=== PATIENT | male | born 1995 | race Caucasian/White ===

== ENCOUNTER 2017-02-19 11:47 | Emergency (ER) | payer BC ==
--- NOTE | 2017-02-19 12:21 | EDM.PDOC ---
ED HPI GENERAL MEDICAL PROBLEM - General Chief Complaint: General Stated Complaint: PAIN IN LOWER BACK Time Seen by Provider: 02/19/17 12:21 Source of Information: Reports: Patient History Limitations: Reports: No Limitations - History of Present Illness INITIAL COMMENTS - FREE TEXT/NARRATIVE: 21-year-old male presents for evaluation and treatment of low back pain. Patient reports he has been experiencing back pain for the last month. States that it did go away for about one week but returned. He is reporting pain to the bilateral lower back. He denies any trauma to the back or injury. No radiation into his legs, weakness, difficulty with ambulation or numbness or tingling into the legs. Patient reports that he has had brown, bonnie urine the last few days. He denies any fevers, chills, dysuria, hematuria, nausea, vomiting, abdominal pain or any weight changes. He states that he has been drinking plenty of water. Patient reports faxed by 3 months ago he was hospitalized for acute kidney failure. He states that he was on a bicycle for about 10 hours he then played basketball for about 5 hours. He was hospitalized in [place] and treated with fluids. Patient is from [place] and comes to [place] to work. Patient feels his back pain today is related to his kidneys. Bilateral Middle Back Pain Score (Numeric/FACES): 7 - Related Data Allergies Allergy/AdvReac Type Severity Reaction Status Date / Time No Known Allergies Allergy Verified 02/19/17 12:00 Home Meds: Home Meds . [No Known Home Meds] 02/13/17 [History] Past Medical History - Past Health History Medical/Surgical History: Denies Medical/Surgical History - Infectious Disease History Infectious Disease History: Reports: None Social & Family History - Family History Family Medical History: Noncontributory - Tobacco Use Smoking Status *Q: Never Smoker - Recreational Drug Use Recreational Drug Use: No ED ROS GENERAL - Review of Systems Review Of Systems: See Below Constitutional: Denies: Fever, Chills, Weight Loss, Weight Gain GI/Abdominal: Denies: Abdominal Pain, Constipation, Nausea, Vomiting : Reports: Other (reports brown, bonnie colored urine). Denies: Dysuria Musculoskeletal: Reports: Back Pain (bilateral low back) Neurological: Denies: Numbness, Tingling, Difficulty Walking, Weakness ED EXAM, GENERAL - Physical Exam Exam: See Below Exam Limited By: No Limitations General Appearance: Alert, WD/WN, No Apparent Distress Ears: Normal External Exam Nose: Normal Inspection Throat/Mouth: Normal Inspection, Normal Voice, No Airway Compromise Neck: Normal Inspection, Supple, Non-Tender, Full Range of Motion Respiratory/Chest: No Respiratory Distress, Lungs Clear, Normal Breath Sounds Cardiovascular: Normal Peripheral Pulses, Regular Rate, Rhythm, No Murmur GI/Abdominal: Normal Bowel Sounds, Soft, Non-Tender Back Exam: Normal Inspection, Full Range of Motion, Paraspinal Tenderness ( bilateral L3-L5), Vertebral Tenderness (L3-L5). No: CVA Tenderness (L), CVA Tenderness (R), Muscle Spasm Neurological: Alert, Oriented, Normal Cognition, Normal Gait Psychiatric: Normal Affect, Normal Mood Skin Exam: Warm, Dry, Normal Color Course - Vital Signs Last Recorded V/S: Last Vital Signs Temp 36.5 C 02/19/17 12:00 Pulse 77 02/19/17 12:00 Resp 18 02/19/17 12:00 BP 142/82 H 02/19/17 12:00 Pulse Ox 100 02/19/17 12:00 - Orders/Labs/Meds Orders: Active Orders 24 hr Category Date Time Status Peripheral IV Care [RC] . DIRECTED Care 02/19/17 12:22 Active Peripheral IV Insertion Adult [OM.PC] Routine Oth 02/19/17 12:22 Ordered Labs: Laboratory Tests 02/19/17 02/19/17 02/19/17 Range/Units 11:45 11:45 12:20 WBC 9.32 H (4.23-9.07) K/mm3 RBC 5.20 (4.63-6.08) M/mm3 Hgb 16.3 (13.7-17.5) gm/L Hct 46.7 (40.1-51.0) % MCV 89.8 (79.0-92.2) fl MCH 31.3 (25.7-32.2) pg MCHC 34.9 (32.2-35.5) g/dl RDW Std Deviation 41.2 (35.1-43.9) fL Plt Count 223 (163-337) K/mm3 MPV 9.8 (9.4-12.3) fl Neut % (Auto) 75.9 H (34.0-67.9) % Lymph % (Auto) 17.0 L (21.8-53.1) % Bland % (Auto) 6.2 (5.3-12.2) % Eos % (Auto) 0.4 L (0.8-7.0) Baso % (Auto) 0.3 (0.1-1.2) % Neut # (Auto) 7.07 H (1.78-5.38) K/mm3 Lymph # (Auto) 1.58 (1.32-3.57) K/mm3 Bland # (Auto) 0.58 (0.30-0.82) K/mm3 Eos # (Auto) 0.04 (0.04-0.54) K/mm3 Baso # (Auto) 0.03 (0.01-0.08) K/mm3 Sodium 139 (136-145) mEq/L Potassium 3.7 (3.5-5.1) mEq/L Chloride 103 (98-107) mEq/L Carbon Dioxide 30 (21-32) mEq/L Anion Gap 9.7 (5-15) BUN 16 (7-18) mg/dL Creatinine 1.1 (0.7-1.3) mg/dL Est Cr Clr Drug Dosing 95.06 mL/min Estimated GFR (MDRD) > 60 (>60) mL/min BUN/Creatinine Ratio 14.5 (14-18) Glucose 79 (74-106) mg/dL Calcium 9.4 (8.5-10.1) mg/dL Total Bilirubin 0.4 (0.2-1.0) mg/dL AST 16 (15-37) U/L ALT 22 (16-63) U/L Alkaline Phosphatase 109 (46-116) U/L Creatine Kinase 210 (39-308) U/L Total Protein 8.1 (6.4-8.2) g/dl Albumin 4.1 (3.4-5.0) g/dl Globulin 4.0 gm/dL Albumin/Globulin Ratio 1.0 (1-2) Urine Color Light yellow (Yellow) Urine Appearance Clear (Clear) Urine pH 7.0 (5.0-8.0) Ur Specific Gordon 1.020 (1.005-1.030) Urine Protein Negative (Negative) Urine Glucose (UA) Trace H (Negative) Urine Ketones Negative (Negative) Urine Occult Blood Negative (Negative) Urine Nitrite Negative (Negative) Urine Bilirubin Negative (Negative) Urine Urobilinogen 0.2 (0.2-1.0) Ur Leukocyte Esterase Negative (Negative) Urine RBC Not seen (0-5) /hpf Urine WBC Not seen (0-5) /hpf Ur Epithelial Cells 0-5 (0-5) /hpf Urine Bacteria Not seen (FEW) /hpf Urine Mucus Not seen (FEW) /hpf Meds: Medications Discontinued Medications Generic Name Dose Route Start Last Admin Trade Name Freq PRN Reason Stop Dose Admin Sodium Chloride 1,000 mls @ 999 mls/hr 02/19/17 12:22 02/19/17 12:52 Normal Saline IV 02/19/17 13:22 999 mls/hr ONETIME ONE Administration Ketorolac Tromethamine 30 mg 02/19/17 14:50 02/19/17 14:56 Toradol IVPUSH 02/19/17 14:51 30 mg ONETIME ONE Administration Sodium Chloride 10 ml 02/19/17 12:22 02/19/17 12:52 Saline Flush FLUSH 10 ml ASDIRECTED PRN Administration Keep Vein Open - Radiology Interpretation Free Text/Narrative:: Abdomen: Supine view of the abdomen was obtained. Comparison: No previous study. Sclerotic area is identified within the left proximal femur and within the left superior acetabulum which is felt compatible with large bone islands. Bowel gas pattern is normal. No abnormal calcifications or soft tissue abnormality is seen. Impression: 1. Incidental finding as noted above. Lumbar spine: AP, lateral and cone down lateral views centered to the lumbosacral junction are obtained. Comparison: No prior lumbar spine study. Vertebral body heights and disc spaces are maintained. Pedicles as well as transverse and spinous processes are intact. No subluxation or fracture is seen. Impression: 1. No abnormality is seen on three-view lumbar spine study. - Re-Assessments/Exams Free Text/Narrative Re-Assessment/Exam: 02/19/17 14:00 I reviewed the lab results with the patient. This is likely musculoskeletal. He is adamant that it is not musculoskeletal and feels it is his kidneys. Will go ahead and get a x-ray of the abdomen and a lumbar spine x-ray. 02/19/17 14:47 I reviewed the x-ray results with the patient. I will give him some Toradol for pain relief. I feel he likely is experiencing musculoskeletal pain. It is also possible constipation. I'll follow up with his primary care provider if his symptoms do not improve within one week. discharge instructions as documented. Departure - Departure Time of Disposition: 14:52 Disposition: Home, Self-Care 01 Condition: Fair Clinical Impression: Back pain, Constipation - Discharge Information Instructions: Back Pain, Adult, Constipation, Adult Referrals: PCP,None [Ordering Only Provider] - Forms: ED Department Discharge, ED Return to Work/School Form Additional Instructions: [id number] Tylenol or Motrin as needed for pain relief. Do not take more than 4 g of Tylenol from all sources in 1 day. Do not take more than 3200 mg of ibuprofen in 1 day. Recommend using ice and heat to the sore area. May use a topical products such as icy hot or BenGay. note for work given/ for the constipation, recommend that he purchase a bottle of mag citrate. this is available [id number]. drink about half of the bottle over 1-2 hours. if you do not have a large bowel movement within 12 hours drink the second half the bottle. make sure you are taking plenty of fluids. for normal bowel maintenance recommend [id number] miralax. follow-up with your primary care provider in 1-2 weeks for recheck. please return to the er if your symptoms change or worsen. - My Orders Last 24 Hours: My Active Orders 02/19/17 12:22 Peripheral IV Care [RC] . DIRECTED Peripheral IV Insertion Adult [OM.PC] Routine - Assessment/Plan Last 24 Hours: My Active Orders 02/19/17 12:22 Peripheral IV Care [RC] . DIRECTED Peripheral IV Insertion Adult [OM.PC] Routine
[2017-02-19] MEDS ORDERED: Sodium Chloride 0.9% 1,000 ML IV ONE (12:22)
[2017-02-19] MEDS ORDERED: Sodium Chloride 0.9% 10 ML Syringe FLUSH PRN (12:22)
[2017-02-19] MEDS ORDERED: Ketorolac 30 MG/ML SDV IVPUSH ONE (14:50)
--- NOTE | 2017-02-19 15:03 | CR ---
Abdomen: Supine view of the abdomen was obtained. Comparison: No previous study. Sclerotic area is identified within the left proximal femur and within the left superior acetabulum which is felt compatible with large bone islands. Bowel gas pattern is normal. No abnormal calcifications or soft tissue abnormality is seen. Impression: 1. Incidental finding as noted above. Diagnostic code #2
--- NOTE | 2017-02-19 15:03 | CR ---
Lumbar spine: AP, lateral and cone down lateral views centered to the lumbosacral junction are obtained. Comparison: No prior lumbar spine study. Vertebral body heights and disc spaces are maintained. Pedicles as well as transverse and spinous processes are intact. No subluxation or fracture is seen. Impression: 1. No abnormality is seen on three-view lumbar spine study. Diagnostic code #1
== END 2017-02-19 15:00 | disposition home or self-care (01) ==
LOC: JD.ED 11:47
DX: M54.5 Low back pain (principal); K59.00 Constipation, unspecified; M54.6 Pain in thoracic spine
CPT/HCPCS: 36415; 72100; 74018; 80053; 81001; 82550; 85025; 96361; 96374; 99284; J1885; J7040; J7050; 99283